=== PATIENT | female | born 1975 | race Caucasian/White ===

== ENCOUNTER → 2018-04-30 | Outpatient (CLI) | payer BC | LOC: COL.LAB 18:34 | DX: M79.89 Other specified soft tissue disorders (principal); R07.89 Other chest pain ==

== ENCOUNTER → 2018-05-03 | Outpatient (CLI) | payer BC | LOC: COL.RAD 08:56 | DX: J45.21 Mild intermittent asthma with (acute) exacerbation (principal); R79.89 Other specified abnormal findings of blood chemistry; I26.99 Other pulmonary embolism without acute cor pulmonale | CPT/HCPCS: Q9967 ==

== ENCOUNTER → 2018-05-03 | Outpatient (CLI) | payer BC | LOC: COL.VAS 13:30 | DX: I26.99 Other pulmonary embolism without acute cor pulmonale (principal); I82.411 Acute embolism and thrombosis of right femoral vein; I82.431 Acute embolism and thrombosis of right popliteal vein; I82.4Z1 Acute embolism and thrombosis of unspecified deep veins of right distal lower extremity ==

== ENCOUNTER 2018-05-12 16:49 | Emergency (ER) | payer BC ==
[~2018-05-12] VITALS: Ht 167.6 cm; Wt 77.3 kg
[2018-05-12 16:56] VITALS: TEMP 98.3
[2018-05-12 18:06] LABS: BASO # 0.1 (0.0-0.2); EOS # 0.4 (0.0-0.7); EOS % 3.7 % (0-4.0); GRAN # 6.3 (1.4-6.5); HEMATOCRIT 40.3 % (37.0-47.0); HEMOGLOBIN 13.1 g/dl (12.5-16.0); LYMPH # 3.7 (1.2-3.4); LYMPH % 32.7 % (20.0-51.0); MEAN CELL VOLUME 90 fl (80.0-100.0); MEAN CORPUSCULAR HEMOGLOBIN 29 pg (27.0-31.0); MEAN CORPUSCULAR HGB CONC 33 g/dl (33.0-37.0); MEAN PLATELET VOLUME 9.2 fl (7.4-10.4); MONO # 0.7 (0.1-0.6); MONO % 6.3 % (1.7-9.3); PLATELET COUNT 354 K/mm3 (130-400); RED BLOOD COUNT 4.47 M/mm3 (4.10-5.30); REDCELL DISTRIBUTION WIDTH-CV 12.9 % (11.5-14.5)
[2018-05-12 18:10] LABS: INR 1.2 (0.8-3.0); PROTHROMBIN TIME 13.3 SECONDS (9.7-12.8)
[2018-05-12 18:16] LABS: ALANINE AMINOTRANSFERASE 34 U/L (9-52); ALBUMIN 4.5 gm/dL (3.5-5.0); ALKALINE PHOSPHATASE 71 U/L (50-136); ANION GAP 10 mmol/L (7-16); AST,SGOT 23 U/L (15-37); BILIRUBIN,TOTAL 0.2 mg/dL (0.0-1.0); BLOOD UREA NITROGEN 13 mg/dL (7-17); CALCIUM 10.2 mg/dL (8.4-10.2); CARBON DIOXIDE 24 mmol/L (22-30); CHLORIDE 107 mmol/L (98-107); GLUCOSE 87 mg/dL (74-106); POTASSIUM 4.1 mmol/L (3.4-5.0); SODIUM 141 mmol/L (137-145); TOTAL PROTEIN 7.8 gm/dL (6.4-8.2)
[2018-05-12] MEDS ORDERED: METHERGINE0.2 MG/TAB PO (18:31)
[2018-05-12 18:33] LABS: HCG,QUANTITATIVE < 2 mIU/mL (0-5)
[2018-05-12] MEDS ORDERED: XARELTO15 MG PO (18:33)
[2018-05-12] MEDS ORDERED: MYRBETR50MG PO (18:33)
[2018-05-12 18:34] VITALS: BP 124/81
[2018-05-12 19:23] VITALS: PULSE 79
== END 2018-05-12 19:27 | disposition home or self-care (01) ==
LOC: COL.ER 16:49
PROVIDERS: Emergency Medicine
DX: N93.9 Abnormal uterine and vaginal bleeding, unspecified (principal); Z86.711 Personal history of pulmonary embolism; Z86.718 Personal history of other venous thrombosis and embolism; Z79.01 Long term (current) use of anticoagulants

== ENCOUNTER → 2018-11-02 | Outpatient (CLI) | payer BC ==
[~2018-11-02] MED LIST: METHERGINE0.2 MG/TAB PO; MYRBETR50MG PO; XARELTO15 MG PO
== END ==
LOC: COL.RAD 08:00
DX: D68.51 Activated protein C resistance (principal); Z86.718 Personal history of other venous thrombosis and embolism; Z86.711 Personal history of pulmonary embolism
CPT/HCPCS: Q9967

== ENCOUNTER → 2019-06-06 | Outpatient (CLI) | payer BC | LOC: MC.RAD 07:45 | DX: Z12.31 Encounter for screening mammogram for malignant neoplasm of breast (principal) ==

== ENCOUNTER → 2020-06-07 | Outpatient (CLI) | payer BC | LOC: MC.RAD 07:45 | DX: Z12.31 Encounter for screening mammogram for malignant neoplasm of breast (principal) ==

== ENCOUNTER → 2021-06-10 | Outpatient (CLI) | payer BC | LOC: MC.RAD 07:30 | DX: Z12.31 Encounter for screening mammogram for malignant neoplasm of breast (principal) ==

== ENCOUNTER → 2023-12-21 | Outpatient (CLI) | payer BC ==
[~2023-12-21] MED LIST changes: +SINGULAIR 110 MG/TAB PO; +XANAX .25M0.25 MG/TA PO; +XARELTO20 MG PO; +ZOLOFT 100MG100 MG PO; +ZYRTEC 10MG10 MG PO
== END ==
LOC: MC.RAD 07:15
DX: Z12.31 Encounter for screening mammogram for malignant neoplasm of breast (principal)

== ENCOUNTER 2024-01-28 08:23 | Day surgery (SDC) | payer BC ==
[~2024-01-28] VITALS: Ht 165.1 cm; Wt 71.6 kg
[~2024-01-28 08:23] MED LIST changes: +LR 1,000 ML IV SCH; +Ondansetron 4 MG/2 ML VIAL IV PRN; -SINGULAIR 110 MG/TAB PO; -XANAX .25M0.25 MG/TA PO; -XARELTO20 MG PO; -ZOLOFT 100MG100 MG PO; -ZYRTEC 10MG10 MG PO
[2024-01-28 08:51] VITALS: BP 111/76; PULSE 73; TEMP 97.3
[2024-01-28] MEDS ORDERED: Lidocaine PF 2% (20 MG/ML) 5 ML VIAL ONE (09:08)
[2024-01-28] MEDS ORDERED: SINGULAIR 110 MG/TAB PO (09:13)
[2024-01-28] MEDS ORDERED: XARELTO20 MG PO (09:13)
[2024-01-28] MEDS ORDERED: ZYRTEC 10MG10 MG PO (09:14)
[2024-01-28] MEDS ORDERED: ZOLOFT 100MG100 MG PO (09:15)
[2024-01-28] MEDS ORDERED: XANAX .25M0.25 MG/TA PO (09:16)
[2024-01-28] MEDS ORDERED: LR 1,000 ML IV ONE (09:46)
[2024-01-28 11:35] VITALS: BP 108/74; PULSE 60; TEMP 97.1
[2024-01-28 11:50] VITALS: BP 114/68; PULSE 60
[2024-01-28 12:05] VITALS: BP 96/17; PULSE 60
[2024-01-28 12:20] VITALS: BP 119/79; PULSE 62
--- NOTE | 2024-01-28 12:35 | NUR ---
1135 RETURNS TO ROOM 5 PER CART. AWAKE, ALERT. RESP UNLABORED. AMBULATES TO RECLINER WITH STANDBY ASSIST. DENIES NAUSEA OR ABD PAIN. VITAL SIGNS OBTAINED. CALL LIGHT AT SIDE. MOTHER IN ROOM 1[address] JUICE WITHOUT NAUSEA. [address] DR LUNA HERE TO SEE PATIENT 1210 [address] PO [address]FF[place] 1220 DISCHARGE INSTRUCTIONS REVIEWED. PATIENT VERBALIZES UNDERSTANDING. COPY PROVIDED IN DISCHARGE FOLDER 1227 DRESSES SELF
== END 2024-01-28 12:35 | disposition home or self-care (01) ==
LOC: SDCO 08:23
DX: Z12.11 Encounter for screening for malignant neoplasm of colon (principal); N32.81 Overactive bladder; G47.33 Obstructive sleep apnea (adult) (pediatric); K21.9 Gastro-esophageal reflux disease without esophagitis; Z86.718 Personal history of other venous thrombosis and embolism; Z86.711 Personal history of pulmonary embolism; Z79.01 Long term (current) use of anticoagulants; Z79.899 Other long term (current) drug therapy
CPT/HCPCS: J2704; J7120